=== PATIENT | female | born 1985 | race Caucasian/White ===

== ENCOUNTER → 2017-06-09 | Outpatient (CLI) | payer SELFPAY ==
[2017-06-09 09:21] LABS: COLLECTION METHOD CLEAN CATCH
[2017-06-09 09:24] LABS: HEMATOCRIT 44.6 % (37.0-47.0); HEMOGLOBIN 14.8 g/dl (12.5-16.0); MEAN CELL VOLUME 89 fl (80.0-100.0); MEAN CORPUSCULAR HEMOGLOBIN 30 pg (27.0-31.0); MEAN CORPUSCULAR HGB CONC 33 g/dl (33.0-37.0); MEAN PLATELET VOLUME 10.4 fl (7.4-10.4); PLATELET COUNT 313 K/mm3 (130-400); RED BLOOD COUNT 4.99 M/mm3 (4.10-5.30); WHITE BLOOD COUNT 8.1 K/mm3 (4.8-10.8)
[2017-06-09 09:36] LABS: ADJUSTED CALCIUM 8.8 mg/dL (8.4-10.2); ALBUMIN 4.6 gm/dL (3.5-5.0); BILIRUBIN,TOTAL 0.4 mg/dL (0.0-1.0); CALCIUM 9.3 mg/dL (8.4-10.2); CREATININE, serum 0.62 mg/dL (0.52-1.25); POTASSIUM 3.9 mmol/L (3.4-5.0); TOTAL PROTEIN 7.9 gm/dL (6.4-8.2)
[2017-06-09 09:44] LABS: MUCOUS Present /lpf; PH 5 (5-8); URINE APPEARANCE Cloudy; URINE BACTERIA None Seen /hpf; URINE BILIRUBIN Negative (NEGATIVE); URINE BLOOD 3+ (NEGATIVE); URINE COLOR Yellow; URINE GLUCOSE Negative (NEGATIVE); URINE KETONE Negative (NEGATIVE); URINE LEUKOCYTE ESTERASE Trace (NEGATIVE); URINE PROTEIN(semi-quant) 1+ (NEGATIVE); URINE RBC >50 /hpf; URINE UROBILINOGEN Negative (NEGATIVE)
== END ==
LOC: COL.LAB 08:53
DX: R50.9 Fever, unspecified (principal); R35.0 Frequency of micturition

== ENCOUNTER → 2019-05-12 | Outpatient (CLI) | payer SELFPAY ==
[2019-05-12 11:19] LABS: ALBUMIN 4.5 gm/dL (3.5-5.0); BILIRUBIN,TOTAL 0.3 mg/dL (0.0-1.0); CALCIUM 9.3 mg/dL (8.4-10.2); CREATININE, serum 0.53 (0.52-1.25); POTASSIUM 3.5 mmol/L (3.4-5.0); TOTAL PROTEIN 8.1 gm/dL (6.4-8.2)
[2019-05-12 11:22] LABS: HEMATOCRIT 43.1 % (37.0-47.0); HEMOGLOBIN 14.5 g/dl (12.5-16.0); MEAN CELL VOLUME 87 fl (80.0-100.0); MEAN CORPUSCULAR HEMOGLOBIN 29 pg (27.0-31.0); MEAN CORPUSCULAR HGB CONC 34 g/dl (33.0-37.0); MEAN PLATELET VOLUME 10.2 fl (7.4-10.4); PLATELET COUNT 330 K/mm3 (130-400); RED BLOOD COUNT 4.93 M/mm3 (4.10-5.30); REDCELL DISTRIBUTION WIDTH-CV 13.6 % (11.5-14.5)
[2019-05-12 11:47] LABS: THYROID STIMULATING HORMONE 2.08 uIU/mL (0.465-4.680)
[2019-05-12 11:49] LABS: ERYTHROCYTE SEDIMENTATION RATE 6 mm/hr (0-20)
[2019-05-12 14:20] LABS: BASO # 0.1 (0.0-0.2); BASO % 0.8 % (0.0-2.0); EOS # 0.2 (0.0-0.7); EOS % 1.8 % (0-4.0); GRAN # 4.7 (1.4-6.5); GRAN % 55.2 % (42.2-75.2); LYMPH % 35.1 % (20.0-51.0); MONO # 0.6 (0.1-0.6); MONO % 6.9 % (1.7-9.3)
== END ==
LOC: COL.LAB 10:39
DX: Z01.89 Encounter for other specified special examinations (principal)

== ENCOUNTER → 2019-05-16 | Outpatient (CLI) | payer SELFPAY | LOC: MC.RAD 14:00 | DX: D24.1 Benign neoplasm of right breast (principal); Z98.82 Breast implant status | CPT/HCPCS: G0279 ==

== ENCOUNTER 2019-09-19 09:50 | Emergency (ER) | payer SELFPAY ==
[~2019-09-19] VITALS: Ht 160 cm; Wt 88.1 kg
[2019-09-19 09:59] VITALS: BP 110/71; PULSE 87; TEMP 97.7
[2019-09-19] MEDS ORDERED: NYQUIL GENERIC PO (10:12)
[2019-09-19 10:34] LABS: STREP SCREEN NEGATIVE
[2019-09-19] MEDS ORDERED: ZITHROMAX Z PA250 MG PO (12:04)
== END 2019-09-19 12:25 | disposition home or self-care (01) ==
LOC: COL.ER 09:50
PROVIDERS: Physician Assistant
DX: J02.9 Acute pharyngitis, unspecified (principal); J04.0 Acute laryngitis